=== PATIENT | female | born 1955 | race Caucasian/White ===

== ENCOUNTER 2017-11-22 01:17 | Outpatient (CLI) | payer OTHER, SELFPAY ==
--- NOTE | 2017-11-22 11:08 | DI.MAMMO_ITS ---
SYMPTOMS/DIAGNOSIS: SCREENING, Z12.31 MAMMOGRAM: Mammograms were interpreted according to the usual protocol including computer analysis with CAD system, tomosynthesis and C view imaging. The breasts are of moderate density with fairly symmetrical distribution of fibroglandular tissue. No dominant mass or clumped microcalcification is identified in either breast. There are numerous scattered nonspecific microcalcifications unchanged from previous examinations including October 2016. CONCLUSION: No specific evidence of malignancy at this time. Routine screening examinations are suggested at yearly intervals in this age group according to the ACS/ACR guidelines. Category I. Breast density Category B. MQSA ASSESSMENT OF FINDINGS: Negative. Category 1. Patient will receive a letter notifying them of these results. BI-RADS category B. There are scattered areas of fibroglandular density.
== END 2017-11-22 01:37 ==
PROVIDERS: PCP Family Medicine; Visit Provider Family Medicine
DX: Z12.31 Encounter for screening mammogram for malignant neoplasm of breast (principal)
CPT/HCPCS: 77063; 77067

== ENCOUNTER 2017-12-30 09:57 | Outpatient (CLI) | payer OTHER, SELFPAY ==
[2017-12-30 11:39] LABS: Hemoglobin A1C 8.9 % (4.5-6.2)
== END 2017-12-30 10:17 ==
PROVIDERS: PCP Family Medicine; Visit Provider Family Medicine
DX: E11.40 Type 2 diabetes mellitus with diabetic neuropathy, unspecified (principal)
CPT/HCPCS: 36415; 83036

== ENCOUNTER 2018-01-02 12:25 | Outpatient (REF) | payer OTHER, SELFPAY ==
--- NOTE | 2018-01-02 11:00 | PAPFT_PTH ---
PATIENT: Shavon Hodges LOC: [facility] #:[id number] AGE/SX: 62/F ROOM: RE01/02/[address]: Rubia Saldaña MD, DC : 1955 BED: DIS: 01/02/2018 SPEC #: [id number] RECD: 01/03/18 13:02 STATUS: OSMAR REAmber #: [id number] JOSE: 01/02/18 11:[address]: Rubia Saldaña [facility] Cytology RECD BY: Leona Coffey Tissues: 1 - CX/ENDOCX FOR PAP SMEARS Procedures: PAP THIN PREP/UVM Screening HPV DNA PROBE Comments: [id number]
== END 2018-01-02 12:45 ==
LOC: LBN 12:25
PROVIDERS: PCP Family Medicine; Visit Provider Family Medicine
DX: Z12.4 Encounter for screening for malignant neoplasm of cervix (principal); Z11.51 Encounter for screening for human papillomavirus (HPV)
CPT/HCPCS: 88142; 87624

== ENCOUNTER 2018-03-16 08:59 | Outpatient (CLI) | payer OTHER, SELFPAY ==
[2018-03-16 09:33] LABS: ALT 48 U/L (12-78); AST 34 U/L (15-37); Albumin 3.8 g/dL (3.4-5.0); Alkaline Phosphatase 91 U/L (46-116); Anion Gap 11.6 mmol/L (3-11); BUN 24 mg/dL (7-18); Bilirubin, Total 0.8 mg/dL (0.2-1.0); CO2 27.4 mmol/L (21.0-32.0); CREATININE 1.12 mg/dL (0.55-1.02); Calcium 9.3 mg/dL (8.5-10.1); Chloride 99 mmol/L (98-107); Estimated GFR 49.62 (mL/min/1.73m2); Glucose 275 mg/dL (70-100); Potassium 4.1 mmol/L (3.5-5.1); Sodium 138 mmol/L (136-145); Total Protein 7.6 g/dL (6.4-8.2)
[2018-03-16 09:46] LABS: Hemoglobin A1C 8.2 % (4.5-6.2)
[2018-03-16 09:52] LABS: Cholesterol 191 mg/dL (50-200); HDL Cholesterol 43 mg/dL (40-60); LDL CHOLESTEROL 121 mg/dL (<100); Triglyceride 199 mg/dL (30-150)
== END 2018-03-16 09:19 ==
PROVIDERS: PCP Family Medicine; Visit Provider Family Medicine
DX: E11.9 Type 2 diabetes mellitus without complications (principal); I10 Essential (primary) hypertension
CPT/HCPCS: 36415; 80053; 80061; 83721; 83036

== ENCOUNTER 2018-08-07 07:42 | Outpatient (CLI) | payer OTHER, SELFPAY ==
[2018-08-07 08:45] LABS: Hemoglobin A1C 7.3 % (4.5-6.2)
== END 2018-08-07 08:02 ==
PROVIDERS: PCP Family Medicine; Visit Provider Family Medicine
DX: E11.9 Type 2 diabetes mellitus without complications (principal)
CPT/HCPCS: 36415; 83036

== ENCOUNTER 2018-11-07 07:38 | Outpatient (CLI) | payer OTHER, SELFPAY ==
[2018-11-07 08:06] LABS: Hemoglobin A1C 7.6 % (4.5-6.2)
== END 2018-11-07 07:58 ==
PROVIDERS: PCP Family Medicine; Visit Provider Family Medicine
DX: E11.9 Type 2 diabetes mellitus without complications (principal)
CPT/HCPCS: 36415; 83036

== ENCOUNTER 2019-01-03 07:01 | Outpatient (CLI) | payer OTHER, SELFPAY ==
[2019-01-03 15:59] LABS: Hemoglobin A1C 8.8 % (4.5-6.2)
== END 2019-01-03 07:21 ==
PROVIDERS: PCP Family Medicine; Visit Provider Family Medicine
DX: E11.9 Type 2 diabetes mellitus without complications (principal)
CPT/HCPCS: 36415; 83036

== ENCOUNTER 2019-11-09 01:37 | Outpatient (CLI) | payer OTHER, SELFPAY ==
[2019-11-09 08:44] LABS: ALT 28 U/L (14-59); AST 17 U/L (15-37); Albumin 3.5 g/dL (3.4-5.0); Alkaline Phosphatase 91 U/L (46-116); Anion Gap 10.3 mmol/L (3-11); BUN 12 mg/dL (7-18); Bilirubin, Total 0.5 mg/dL (0.2-1.0); CO2 27.7 mmol/L (21.0-32.0); CREATININE 0.97 mg/dL (0.55-1.02); Calcium 8.9 mg/dL (8.5-10.1); Calculated LDL 121 mg/dL (<100); Chloride 104 mmol/L (98-107); Cholesterol 187 mg/dL (<200); Estimated GFR 58.19 (mL/min/1.73m2); Glucose 67 mg/dL (74-106); HDL Cholesterol 39 mg/dL (40-60); Potassium 3.5 mmol/L (3.5-5.1); Sodium 142 mmol/L (136-145); Total Protein 7.1 g/dL (6.4-8.2); Triglyceride 137 mg/dL (<150)
[2019-11-09 09:02] LABS: Hemoglobin A1C 7.8 % (3.8-5.6)
== END 2019-11-09 01:57 ==
PROVIDERS: PCP Family Medicine; Visit Provider Family Medicine
DX: Z00.00 Encounter for general adult medical examination without abnormal findings (principal); Z13.220 Encounter for screening for lipoid disorders; Z13.228 Encounter for screening for other metabolic disorders; Z13.1 Encounter for screening for diabetes mellitus
CPT/HCPCS: 36415; 80053; 80061; 83036

== ENCOUNTER 2020-01-03 02:23 | Outpatient (CLI) | payer OTHER, SELFPAY ==
[2020-01-03 11:29] LABS: Hemoglobin A1C 8.3 % (<5.7)
== END 2020-01-03 02:43 ==
PROVIDERS: PCP Family Medicine; Visit Provider Family Medicine
DX: E11.9 Type 2 diabetes mellitus without complications (principal); E03.9 Hypothyroidism, unspecified
CPT/HCPCS: 36415; 83036; 84443

== ENCOUNTER 2020-01-09 01:01 | Outpatient (CLI) | payer OTHER, SELFPAY ==
--- NOTE | 2020-01-09 11:10 | DI.MAMMO_ITS ---
EXAM: MAMMO SCREENING CLINICAL HISTORY: screening, Z12.39 TECHNIQUE: Mammograms were interpreted according to the usual protocol including computer analysis w [employer] CAD system, tomosynthesis and C-view imaging. COMPARISON: 2009 through 2017 FINDINGS: The breasts are composed of scattered fibroglandular densities, Breast Density category B. No suspicious masses or suspicious microcalcifications are seen. Scattered, coarse calcifications an d vascular calcifications are again noted. No skin thickening or abnormal axillary lymph nodes are seen. There has been no significant change from prior exams. IMPRESSION: BI-RADS Category 2 - Negatigve Mammogram with benign findings. Yearly screening mammography is karissa mmended. Breast Density - Category B, scattered fibroglandular densities. A negative radiographic report should not delay biopsy if a dominant or clinically suspicious mass is present. Up to ten percent of cancers are not identified on mammography. A negative report may reinforce clinical impression. Adenosis and dense breasts may obscure an underlying neoplasm. False positive reports average 6 to 10%. Patient will receive a letter notifying them of these results.
== END 2020-01-09 01:21 ==
PROVIDERS: PCP Family Medicine; Visit Provider Family Medicine
DX: Z12.31 Encounter for screening mammogram for malignant neoplasm of breast (principal)
CPT/HCPCS: 77063; 77067

== ENCOUNTER 2020-07-25 02:07 | Outpatient (CLI) | payer OTHER, SELFPAY ==
[2020-07-25 10:12] LABS: Hemoglobin A1C 6.7 % (<5.7)
[2020-07-25 10:54] LABS: COMMENT (LAB VIEW ONLY) 304.64 mg/dL; Microalb ug/mg Crea 3.4 ug/mg Cr
== END 2020-07-25 02:08 | disposition home or self-care (01) ==
LOC: LBO 02:08
PROVIDERS: PCP Family Medicine; Visit Provider Family Medicine
DX: Z00.00 Encounter for general adult medical examination without abnormal findings (principal); E11.9 Type 2 diabetes mellitus without complications
CPT/HCPCS: 36415; 82043; 82570; 83036

== ENCOUNTER 2020-09-16 13:04 | Day surgery (SDC) | payer OTHER, SELFPAY ==
--- NOTE | 2020-09-16 13:02 | W.PM.DSUDISC ---
Discharge Plan Disposition Patient Disposition: HOME Condition: Good Discharge Details Reason For Visit: Right trigger thumb Attending Provider: Aftab Zuleta Primary Care Provider: Rubia Saldaña Home Meds and New Rx's Prescriptions: New hydrocodone-acetaminophen 5-325 mg tablet 1 tab PO Q6H PRNQty: 5 RF: 0 acetaminophen [Tylenol Extra Strength] 500 mg tablet 500 mg PO Q6H PRNQty: 30 RF: 0 ibuprofen 600 mg tablet 600 mg PO TID Qty: 30 RF: 0 Continued (DME) pen needle, diabetic [Pen Needle] 31 gauge x 5/16 needle 1 ea Sub-Q TID Qty: 270 RF: 12 (DME) lancets [BD Ultra Fine Lancets] 33 gauge misc 1 ea Miscellaneous DAILY Qty: 90 RF: 12 Trulicity 1.5 mg/0.5 mL pen injector 1.5 mg SC QWEEK Qty: 8 RF: 5 epinephrine [EpiPen 2-Constantin] 0.3 mg/0.3 mL auto-injector 0.3 mg IM ONCE Qty: 1 RF: 4 hydrochlorothiazide 25 mg tablet 25 mg PO DAILY Qty: 90 RF: 4 ibuprofen 600 mg tablet 600 mg PO Q6H PRN Qty: 360 RF: 12 Lantus Solostar U-100 Insulin 100 unit/mL (3 mL) insulin pen 60 unit SC BID Qty: 120 RF: 5 insulin lispro [Humalog KwikPen Insulin] 100 unit/mL insulin pen 25 unit SC BID Qty: 15 RF: 12 losartan 100 mg tablet 100 mg PO DAILY Qty: 90 RF: 4 metformin 1,000 mg tablet 1,000 mg PO DAILY Qty: 90 RF: 4 atorvastatin 40 mg tablet 40 mg PO DAILY RF: 0 clopidogrel 75 mg tablet 75 mg PO DAILY RF: 0 multivitamin 1 EACH tablet 1 tab PO DAILY RF: 0 aspirin [Aspirin Low-Strength] 81 MG tablet,chewable 81 mg PO DAILY RF: 0 (DME) lancets [OneTouch Delica Lancets] 1 EACH misc 1 ea Miscellaneous QID RF: 0 (DME) Blood Glucose Test strip 1 ea Miscellaneous TID Qty: 400 RF: 12 levothyroxine 75 mcg tablet 75 mcg PO DAILY Qty: 90 RF: 5 pantoprazole 40 mg tablet,delayed release (DR/EC) 40 mg PO DAILY Qty: 90 RF: 5 Discharge Instructions Stand Alone Forms: Song Gonzalez Finger Release Referrals: Aftab Zuleta MD [ [facility] STAFF PHYSICIAN] - Activity:: Activity as Tolerated Remove Dressings/Wound Care:: 72 hours Shower/Bathe:: 72 hours Diet:: As Tolerated Discharge Orders Discharge Orders: Discharge Order (Routine); Ordered 09/16/20 Ordered By: Willow Lucas DS: Diagnosis Discharge Diagnosis (1) Trigger thumb, right thumb: Status: Acute
[2020-09-16 13:33] VITALS: BP 96/63; PULSE 75; RESP 20; TEMP 36.5; O2SAT 97
[2020-09-16] MEDS: Sodium Bicarbonate 50 MEQ/50 ML VIAL (15:06)
[2020-09-16 15:10] VITALS: BP 117/46; PULSE 77; RESP 18; TEMP 36.3; O2SAT 99
--- NOTE | 2020-09-16 22:30 | W.PM.OP ---
Date of service: 09/16/20 Time of Service: 14:30 Operative Note Operative Note DATE OF PROCEDURE: 09/16/20 PRE-OP DIAGNOSIS: Right Trigger Thumb POST-OP DIAGNOSIS: same PROCEDURE: Trigger Finger Release - Right Thumb SURGEON: Aftab Zuleta ANESTHESIA TYPE: Local By Surgeon Refer to Anesthesia Record PATHOLOGY: none sent COMPLICATIONS: None Patient was transported to: same day Patient's condition: stable Indications: I have seen Shavon in clinic for symptoms of a trigger finger of the right thumb. The catching, clicking, locking, and pain limited function. The diagnosis of trigger finger was evident. The symptoms had not responded to conservative measures. I discussed trigger finger release with the patient. I reviewed the risks of the procedure to include, but not limited to, bleeding, infection, pain, stiffness, incomplete release, damage to nerves or vessels, continued catching, recurrence. Despite these risks, the patient elected to proceed. Findings: There was a tightened A1 anya which was released. The flexor tendons were inspected and the patient was able to move the finger without any catching, clicking, or locking. Procedure Description: Shavon was greeted in the preoperative holding area where the correct side was identified and marked. The consent was reviewed with the patient and signed. All questions were answered. She was taken back to the operating room. The patient was placed into the supine position on the operating room table with the right arm on an arm board. All bony prominences were well padded. No prophylactic antibiotics were administered since this was a clean, elective hand surgical case. The right arm was then prepped with Chloraprep and draped in a standard fashion with stockinette and extremity drape. A timeout to confirm correct identity, side and site, procedure, allergies, anesthesia, and medical concerns was performed. The surgical site was marked as a longitudinal incision directly over the A1 anya of the involved digit. This was confirmed with palpation during finger flexion. This area, overlying the metacarpal head, was then anesthetized with 1% Lidocaine. The patient tolerated this well and once the anesthetic had setup, the procedure began. A longitudinal incision was made through skin only, approximately 1cm. The deep tissues were dissected bluntly. Once the A1 anya and flexor tendons were identified the soft tissue including neurovascular structures were retracted medially and laterally. There were no crossing structures over the A1 anya. The proximal edge of the anya was identified and the anya was incised with tenotomy scissors. There was a release of the tendons once this was fully released. The tendons were then removed from the wound and inspected. Excess synovium was resected. The tendons were then returned and the patient was asked to move the finger into deep flexion and back to extension. There was no recreation of the pre-operative symptoms. The hand was then once more inspected for any A0 anya or area of possible constriction. The wound was then irrigated and the skin was closed with a 4-0 Nylon. This was dressed with gauze and a Conform dressing. The patient tolerated the procedure well and was returned to the Same Day Surgery area in a stable condition suffering no known complication.
== END 2020-09-16 15:32 | disposition home or self-care (01) ==
LOC: SUR 13:04
PROVIDERS: PCP Family Medicine; Visit Provider Student in an Organized Health Care Education/Training Program
PROC: 0LN70ZZ Release Right Hand Tendon, Open Approach (ICD-10-PCS; CPT 26055; principal; 2020-09-16 14:30)
DX: M65.311 Trigger thumb, right thumb (principal)
CPT/HCPCS: 26055

== ENCOUNTER 2020-10-24 01:41 | Outpatient (CLI) | payer OTHER, SELFPAY ==
[2020-10-24 13:12] LABS: Hemoglobin A1C 6.8 % (<5.7)
[2020-10-24 13:14] LABS: TSH (W/Ref FT4) 0.81 uIU/mL (0.36-3.74)
== END 2020-10-24 01:42 | disposition home or self-care (01) ==
LOC: LOS 01:41
PROVIDERS: PCP Family Medicine; Visit Provider Family Medicine
DX: E11.9 Type 2 diabetes mellitus without complications (principal); E03.9 Hypothyroidism, unspecified
CPT/HCPCS: 36415; 83036; 84443

== ENCOUNTER 2021-01-08 02:36 | Outpatient (CLI) | payer OTHER, SELFPAY ==
[2021-01-08 08:55] LABS: Hemoglobin A1C 6.4 % (<5.7)
[2021-01-08 09:35] LABS: ALT 24 U/L (14-59); AST 15 U/L (15-37); Albumin 3.8 g/dL (3.4-5.0); Alkaline Phosphatase 99 U/L (46-116); Anion Gap 11.4 mmol/L (3-11); BUN 24 mg/dL (7-18); Bilirubin, Total 0.6 mg/dL (0.2-1.0); CO2 28.6 mmol/L (21.0-32.0); CREATININE 1.4 mg/dL (0.55-1.02); Calculated LDL 100 mg/dL (<100); Chloride 105 mmol/L (98-107); Cholesterol 175 mg/dL (<200); Estimated GFR 37.98 (mL/min/1.73m2); Glucose 111 mg/dL (74-106); HDL Cholesterol 42 mg/dL (40-60); Potassium 3.8 mmol/L (3.5-5.1); Sodium 145 mmol/L (136-145); Total Protein 6.8 g/dL (6.4-8.2); Triglyceride 167 mg/dL (<150)
== END 2021-01-08 02:37 | disposition home or self-care (01) ==
LOC: LBO 02:37
PROVIDERS: PCP Family Medicine; Visit Provider Family Medicine
DX: Z00.00 Encounter for general adult medical examination without abnormal findings (principal); E11.9 Type 2 diabetes mellitus without complications
CPT/HCPCS: 36415; 80053; 80061; 83036

== ENCOUNTER 2021-01-12 14:28 | Outpatient (REF) | payer OTHER, SELFPAY ==
--- NOTE | 2021-01-12 13:30 | PAPFT_PTH ---
PATIENT: Shavon Hodges LOC: [facility]#:[id number] AGE/SX: 65/F ROOM: RE01/12/[address]: Rubia Saldaña MD, DC : 1955 BED: DIS: 01/12/2021 SPEC #: [id number] RECD: 01/13/21 12:42 STATUS: OSMAR REAmber #: [id number] JOSE: 01/12/21 13:[address]: Rubia Saldaña [facility] Cytology RECD BY: Leona Coffey Tissues: 1 - CX/ENDOCX FOR PAP SMEARS Procedures: PAP THIN PREP/UVM Screening HPV DNA PROBE Comments: [id number]
== END 2021-01-12 14:29 | disposition home or self-care (01) ==
LOC: LBN 14:28
PROVIDERS: PCP Family Medicine; Visit Provider Family Medicine
DX: Z12.4 Encounter for screening for malignant neoplasm of cervix (principal); Z11.51 Encounter for screening for human papillomavirus (HPV)
CPT/HCPCS: 88142; 87624

== ENCOUNTER 2021-09-25 02:19 | Outpatient (CLI) | payer OTHER, SELFPAY ==
[2021-09-25 10:10] LABS: HCT 36.1 % (36.0-46.0); HGB 12.1 g/dL (11.2-15.7); MCH 31.4 pg (27.0-33.0); MCHC 33.5 % (32.0-36.0); MCV 94 fL (80-95); MPV 11.2 fL (8.0-11.0); Platelet Count 214 10^3/uL (130-400); RBC 3.85 10^6/uL (3.93-5.22); RDW 13.7 % (11.7-14.6); RDW-SD 46.2 fL; WBC 8.79 10^3/uL (4.4-10.8)
[2021-09-25 10:33] LABS: Hemoglobin A1C 6.9 % (<5.7)
[2021-09-25 10:59] LABS: ALT 34 U/L (14-59); AST 24 U/L (15-37); Albumin 3.6 g/dL (3.4-5.0); Alkaline Phosphatase 85 U/L (46-116); Anion Gap 9.4 mmol/L (3-11); BUN 23 mg/dL (7-18); Bilirubin, Total 0.7 mg/dL (0.2-1.0); CO2 30.6 mmol/L (21.0-32.0); CREATININE 1.3 mg/dL (0.55-1.02); Calcium 8.7 mg/dL (8.5-10.1); Chloride 103 mmol/L (98-107); Estimated GFR 41.24 (mL/min/1.73m2); Glucose 95 mg/dL (74-106); Potassium 3.2 mmol/L (3.5-5.1); Sodium 143 mmol/L (136-145); TSH (W/Ref FT4) 2.39 uIU/mL (0.36-3.74); Total Protein 6.9 g/dL (6.4-8.2)
== END 2021-09-25 02:20 | disposition home or self-care (01) ==
LOC: LBO 02:19
PROVIDERS: PCP Family Medicine; Visit Provider Family Medicine
DX: E03.9 Hypothyroidism, unspecified (principal); E11.9 Type 2 diabetes mellitus without complications; I25.10 Atherosclerotic heart disease of native coronary artery without angina pectoris; K76.0 Fatty (change of) liver, not elsewhere classified; N28.9 Disorder of kidney and ureter, unspecified
CPT/HCPCS: 36415; 80053; 85027; 82043; 82570; 83036; 84443

== ENCOUNTER 2021-11-02 02:31 | Outpatient (CLI) | payer OTHER, SELFPAY ==
[2021-11-02 10:46] LABS: Source Nasal/Nares
[2021-11-02 16:06] LABS: COVID-19 PCR Negative (Negative)
== END 2021-11-02 02:32 | disposition home or self-care (01) ==
LOC: LBO 02:31
PROVIDERS: PCP Family Medicine; Visit Provider Surgery
DX: Z20.822 Contact with and (suspected) exposure to COVID-19 (principal); Z01.818 Encounter for other preprocedural examination
CPT/HCPCS: 87635

== ENCOUNTER 2021-11-03 06:09 | Day surgery (SDC) | payer OTHER, SELFPAY ==
--- NOTE | 2021-11-02 21:28 | ENDO_ITS ---
Date of service: 11/03/21 Time of Service: 07:42 Endoscopy Report DATE OF PROCEDURE: 11/03/21 PRE-OP DIAGNOSIS: dysphagia/reflux POST-OP DIAGNOSIS: other (gastroparesis ) SURGEON: Natasha Gonzalez ANESTHESIA TYPE: General:No Airway ESTIMATED BLOOD LOSS: 0 PATHOLOGY: none sent COMPLICATIONS: None DISPOSITION: PACU PROCEDURE DESCRIPTION: After informed consent was obtained the patient was take to the procedure room and placed in a supine position. Monitors were applied and a time out was done. The patients name, date of , procedure type, allergies to medications and metal in their body was reviewed. A bite block was placed and the patient was sedated. Once sedated and comfortable the gastroscope was advanced through the oropharynx which was grossly normal into the esophagus. The proximal and mid- esophagus were normal In the distal esophagus there was there is no esophageal erosions, varices, diverticula, or stricture apparent. Upon inserting the gastroscope into the stomach, there is a large quantity of fluid still present in the stomach. We did attempt to liquefy and suction this material but at the same time the patient did aspirate. What I could see in the stomach was normal with normal mucosa. No biopsies were taken. The procedure was abandoned for patient safety. There are no strictures.The scope was removed and the patient was woken up and taken back to PACU in stable condition. Follow up: gastric emptying study f/u in clinic
--- NOTE | 2021-11-02 21:34 | W.PM.DSUDISC ---
Discharge Plan Disposition Patient Disposition: HOME Condition: Good Discharge Details Reason For Visit: EGD/Stomach scope Attending Provider: Natasha Gonzalez Primary Care Provider: Rubia Saldaña Home Meds and New Rx's Prescriptions: New lansoprazole [Prevacid] 30 mg capsule,delayed release(DR/EC) 30 mg PO DAILY Qty: 30 12RF Continued (DME) pen needle, diabetic [Pen Needle] 31 gauge x 5/16 needle 1 ea Sub-Q TID Qty: 270 12RF Rx Instructions: BD Pen needles; DX:E10.39/ E10/Z79.4 (DME) lancets [BD Ultra Fine Lancets] 33 gauge misc 1 ea Miscellaneous DAILY Qty: 90 12RF Rx Instructions: 250.01/250.92/ 29G atorvastatin 40 mg tablet 40 mg PO DAILY Qty: 90 4RF metoprolol succinate 25 mg tablet extended release 24 hr 25 mg PO DAILY Qty: 90 5RF (DME) Blood Glucose Test Strip 1 ea Miscellaneous TID Qty: 400 12RF Rx Instructions: FORContour regular meter. PT USES INSULIN. TESTS TID AND PRN. DIAGNOSIS CODE E11.65/E11.40 Trulicity 1.5 mg/0.5 mL pen injector 1.5 mg SC QWEEK Qty: 8 5RF epinephrine [EpiPen 2-Constantin] 0.3 mg/0.3 mL auto-injector 0.3 mg IM ONCE Qty: 1 4RF hydrochlorothiazide 25 mg tablet 25 mg PO DAILY Qty: 90 4RF insulin lispro [Humalog KwikPen Insulin] 100 unit/mL insulin pen 25 unit SC BID Qty: 15 12RF losartan 100 mg tablet 100 mg PO DAILY Qty: 90 4RF Probiotic 3 billion cell capsule 3,000 mmu cells PO DAILY Rx Instructions: administer with a meal multivitamin 1 EACH tablet 1 tab PO DAILY aspirin [Aspirin Low-Strength] 81 MG tablet,chewable 81 mg PO DAILY (DME) lancets [OneTouch Delica Lancets] 1 EACH misc 1 ea Miscellaneous QID Rx Instructions: DX:250. (DME) blood-glucose meter Kit See Rx Instructions .ROUTE .MEDSUPPLY Qty: 1 0RF Rx Instructions: on insulin, e11.9, contour meter (DME) pen needle, diabetic [BD Ultra-Fine Orig Pen Needle] 29 gauge x 1/2 needle See Rx Instructions .ROUTE .MEDSUPPLY Qty: 500 4RF Rx Instructions: 5 needles per day and prn.E11.9. Z79.4 levothyroxine 75 mcg tablet 75 mcg PO DAILY Qty: 90 5RF insulin glargine [Lantus Solostar U-100 Insulin] 100 unit/mL (3 mL) insulin pen 50 unit SC BID Qty: 120 6RF (DME) pen needle, diabetic [1st Tier Unifine Pentips] 31 gauge x 5/16 needle See Rx Instructions .ROUTE .MEDSUPPLY Qty: 1200 5RF Rx Instructions: E11.9; 6 needles per day acetaminophen [Tylenol Extra Strength] 500 mg tablet 500 mg PO Q6H PRNQty: 30 0RF clopidogrel 75 mg tablet 1 tab PO DAILY Discontinued pantoprazole 40 mg tablet,delayed release (DR/EC) 40 mg PO DAILY Qty: 90 3RF Discharge Instructions Additional Instructions: Post?EGD?Instruction ? ?You had anesthesia for your EGD/stomach scope today.? For your safety, please do the following for the next twenty-four (24) hours: Do Not operate a motor vehicle (car, truck, motorcycle, etc.) Do Not drink alcoholic beverages or use any recreational drugs for the first 24 hours or while taking pain medications. The medications in your body may have a reaction that can be dangerous. Do Not make any important decisions or sign any important papers ? You have just had a gastroscopy (EGD) or upper GI tract examination. It is important for your smooth recovery that you carefully follow the recommendations below. Do not hesitate to call if any questions should arise about your anesthesia, condition, or care. -Symptoms you may experience during the next 24 hours: ?1. Mild abdominal pain or excessive gas or a bloated feeling which improves with rest, liquids, eating? slightly, and walking as tolerated. 2. Drowsiness and/or forgetfulness because of the medications you were given. ?3. Throat numbness for about 1 hour. 4. A sore throat which you can treat with throat lozenges or by gargling with salt water 4-5 times a day. 5. Redness at the site of your IV which you can treat with warm compresses. ? SPECIAL INSTRUCTIONS: 1. You may resume your previous diet in one hour. We recommend a light meal to start, then progress as tolerated. 2. Restart regular medications in one hour. 3. No aspirin or non-steroidal containing medication for three days. 4. No lifting over 20 pounds or strenuous activity for the first 24 hours after your procedure. After 24 hours there are no restrictions on your activity, but you may feel fatigued for a few days. -Medications: Changed to prevacid -Continue to follow lifestyle modifications: No alcohol, tobacco products, Aspirin or NSAID's (ibuprofen, Motrin, Naprosyn, aleve, etc).? Try to limit/avoid:? soda pop/any carbonated beverages, caffeine (including tea & chocolate), and acidic foods, (tomatoes, citrus, onions, peppermints) spicy or fried/fatty foods. Do not lie down for 30 minutes after eating, and do not eat 2 hours prior to bedtime. Avoid wearing tight fitting clothing/ belts. -OK to resume plavix today -Do not take Aspirin on an empty stomach- take w/ food. Follow up: Dr. Gonzalez in clinic: 2-3 weeks time, after the gastric empyting study The hospital will call to schedule this. Call the office at [phone] (Office) or [phone] (Hospital), or go to the ER right away if you notice any of the followin. Vomiting blood and /or ?coffee ground? material. ?2. Worsening of abdominal pain or cramping. ?3. Trouble with breathing, cough, and/or fever (temperature above 101.5 F). 4. Increasing pain with swallowing. ?5. Chest pain. 6. Any new symptoms. 7. Worsening of the redness at the IV site Activity:: see above Diet:: see above Discharge Orders Discharge Orders: Discharge Order (Routine); Ordered 11/02/21 Ordered By: Natasha Gonzalez
[2021-11-03] VITALS (8 sets, daily range): BP systolic 118–158; BP diastolic 59–81; PULSE 70–77; RESP 10–24; TEMP 36.1–36.5; O2SAT 95–100; BMI 41.9
--- NOTE | 2021-11-03 06:19 | ANES.PREOP_ITS ---
General Info Date of Service Date Performed: 11/03/21 Height: 5 ft 5.5 in Weight: 116.12 kg Body Mass Index (BMI): 41.9 Surgical Procedure: Operation Date: 11/03/21 07:35 Proposed Procedure Side Surgeon p Gastroscopy with Possible Dilation Natasha Gonzalez, Meds Allergies and Home Medications Allergies Allergy/AdvReac Type Severity Reaction Status Date / Time No Known Allergies Allergy Unverified 11/03/21 06:25 Home Medication Medication Instructions Recorded aspirin 81 mg chewable tablet 81 mg PO DAILY 06/16/12 (Aspirin Low-Strength) lancets 33 gauge (OneTouch Delica 06/16/12 Lancets) multivitamin 1 tab PO DAILY 06/16/12 lancets 33 gauge (BD Ultra Fine ##90 01/02/18 Lancets) pen needle, diabetic 31 gauge x ##270 01/02/1808/03 (Pen Needle) acetaminophen 500 mg tablet 500 mg PO Q6H PRN #30 tabs 09/16/20 (Tylenol Extra Strength) blood-glucose meter #1 ea 11/07/20 pen needle, diabetic 29 gauge x #500 ea 12/14/20 1/2 (BD Ultra-Fine Original Pen Needle) dulaglutide 1.5 mg/0.5 mL 1.5 mg (0.5 mL) subcut QWEEK #8 mL 01/12/21 subcutaneous pen injector (Trulicity) epinephrine 0.3 mg/0.3 mL 0.3 mg (0.3 mL) IM ONCE #1 ea 01/12/21 injection, auto-injector (EpiPen 2-Constantin) hydrochlorothiazide 25 mg tablet 25 mg PO DAILY #90 tabs 01/12/21 insulin lispro 100 unit/mL 25 unit (0.25 mL) subcut BID #15 mL 01/12/21 subcutaneous pen (Humalog KwikPen (U-100) Insulin) losartan 100 mg tablet 100 mg PO DAILY #90 tab-caps 01/12/21 levothyroxine 75 mcg tablet 75 mcg PO DAILY #90 tabs 01/27/21 insulin glargine 100 unit/mL (3 50 unit (0.5 mL) subcut BID #120 mL 02/20/21 mL) subcutaneous pen (Lantus Solostar U-100 Insulin) pen needle, diabetic 31 gauge x #1,200 ea 02/23/2108/03 (1st Tier Unifine Pentips) pantoprazole 40 mg tablet,delayed 40 mg PO DAILY #90 tabs 08/13/21 release atorvastatin 40 mg tablet 40 mg PO DAILY #90 tabs 09/28/21 blood sugar diagnostic (Blood #400 strips 09/28/21 Glucose Test strips) metoprolol succinate 25 mg 25 mg PO DAILY #90 tabs 09/28/21 tablet,extended release 24 hr lactobacillus combination no.4 3 3,000 mmu cells PO DAILY 10/22/21 billion cell capsule (Probiotic) clopidogrel 75 mg tablet 1 tab PO DAILY 11/02/21 Current Visit Medications: Current Medications Generic Name Dose Route Start Last Admin Trade Name Freq PRN Reason Stop Dose Admin Hyoscyamine Sulfate 0.125 mg 11/02/21 21:27 Hyoscyamine 0.125 Mg Sl/Oral/Chew SL DIRECTED PRN Ringer's Solution 1,000 mls @ 80 mls/hr 11/03/21 06:00 IV 12/02/21 23:59 [facility] IV Miscellaneous Supplies 1 each 11/03/21 06:00 Iv Access IV 12/02/21 23:59 DIRECTED VALDEMAR Ondansetron HCl 4 mg 11/02/21 21:27 Ondansetron 4 Mg/2 Ml Vial IVP Q4H PRN PRN Nausea / Vomiting Sodium Chloride 0 ml 11/03/21 06:00 Normal Saline Flush 10 Ml Syr IV 12/02/21 23:59 PRN PRN Sodium Chloride 0 ml 11/03/21 06:00 Normal Saline 10 Ml Vial IJ 12/02/21 23:59 DIRECTED PRN Sterile Water 0 ml 11/03/21 06:00 Water,Injection,Sterile 10 Ml Vial IJ 12/02/21 23:59 DIRECTED PRN PFSH Active Problems Active Problems: Problem Status Onset Code Annual physical exam 11/11/16 Z00.00 Carpal tunnel syndrome on both sides 05/21/14 G56.03 Degeneration of cervical intervertebral disc 02/18/00 M50.30 Diabetes mellitus with neuropathy 04/08/14 E11.40 Duodenitis K29.80 Essential hypertension 12/29/12 I10 Gastritis 04/14/15 K29.70 Hyperlipidemia 09/25/12 E78.5 Increased body mass index R63.8 Myopia 12/07/12 H52.10 Non-alcoholic fatty liver disease 02/27/08 K76.0 Osteopenia 11/14/07 M85.80 Reflux esophagitis K21.0 Diabetes mellitus Epicondylitis Shoulder pain, left Hypothyroid E03.9 Shingles B02.9 CAD (coronary artery disease) I25.10 Trigger thumb, right thumb M65.311 Right leg pain M79.604 Renal insufficiency N28.9 Medical History Medical History Abnormal mammography 11/14/07 Acute vaginitis 01/06/17 Calculus of gallbladder without cholecystitis without obstruction (01/22/15) DM w/o complication type I, uncontrolled (09/25/12) Uncontrolled; hemoglobin A1c > 10 Dysfunctional uterine bleeding 07/18/05 neg endo bx; thickened endometrium on pelvic u/s. Epicondylitis 11/14/07 H. pylori infection 07/14/15 Hemorrhoids (11/14/07) Myocardial infarction per pt. 18+months ago-pt. states she didn't even know she had one. Routine gynecological examination 09/30/14 Smoker 11/14/07 Supraventricular tachycardia 12/18/94 cath ablation Visual disturbance (11/18/08) presbyopia; astigmatisam thought to be secondary to diabetes and hypertension Surgical History Surgical History History of bilateral tubal ligation Hx laparoscopic cholecystectomy Hx of colonoscopy Ligation of fallopian tube Tobacco Smoking/Tobacco Use Status: Former Tobacco Use Passive smoking exposure: Yes Second hand exposure: Yes Alcohol Alcohol Intake: current Alcohol intake frequency: holidays/special occasions only Alcohol type: hard liquor Substance Use Substance use: Never Substance use type: does not use Vital Signs and Lab Results Lab Results Blood Type / Crossmatch: No Data to Display Complete Blood Count: No Data to Display Complete Metabolic Panel: No Data to Display Liver Function Panel: No Data to Display Coagulation Panel: No Data to Display Cardiac Panel: No Data to Display Arterial Blood Gas: No Data to Display Venous Blood Gas: No Data to Display Pancreas Panel: No Data to Display Thyroid Panel: No Data to Display Infectious Disease: Coronavirus (COVID-19)(PCR) Negative (Negative) 11/02/21 09:25 Coronavirus 2019 Source Nasal/Nares 11/02/21 09:25 Blood Cultures: No Data to Display Toxicology Panel: No Data to Display Anesthesia Assessment and Plan Anesthesia History Personal History: No History of Anesthesia Complications Family History: No Family History of Anesthesia Complications Exercise Tolerance Exercise Tolerance: Metabolic Equivalents>4 Cardiac & Pulmonary Exam Cardiac Exam: Normal S1/S2 Heart Sounds Pulmonary Exam: Clear Bilateral Breath Sounds Implantable Cardiac Device Does patient have a Pacemaker or an ICD?: No Airway Exam Known Difficult Airway: No Mallampati Class: 3 Mouth Opening: Narrow (< 3cm) Thyromental Distance: Greater than 3 cm Neck Range of Motion: Full ROM Neck Circumference: Normal Teeth Condition: Normal Dentition ASA Classification ASA Score: ASA 3 Emergency Case?: No NPO Status NPO Status: NPO Clears >2 hours, Solids >8 hours Anesthesia Plan Resuscitation Status: Full Code Anesthesia Technique: General Anesthesia Airway Planned: Natural Airway Monitors Used: Standard Monitors Preoperative Comments:: 66 yo female for EGD with possible dilation. Sig PMHx: DMI last a1c 6.9, BMI 40+, DJD c-spine, BECK, CAD with stent (2020), hypothyroid, HTN, former smoker, occ EtOH, GERD.
[2021-11-03] MEDS: Lactated Ringers 1,000 ML 80 ML IV (06:51)
[2021-11-03] MEDS: Albuterol/Ipratropium 3 ML UPD VIAL UPD (08:01)
--- NOTE | 2021-11-03 09:56 | W.ANESPOSTOP ---
Postoperative Evaluation Date, Time and Location Date Performed: 11/03/21 Time Performed: 09:56 Patient Location: Day Surgery Unit Vital Signs Most Recent Imported Vital Signs: Most Recent Vital Signs Temp Pulse Resp BP Pulse Ox 36.1 C L 74 16 142/64 H 97 11/03/21 09:05 11/03/21 09:05 11/03/21 09:05 11/03/21 09:05 11/03/21 09:05 Pain Score Most Recent Pain Score: Most Recent Pain Score Pain Level 0 11/03/21 09:05 Assessment Mental Status: Awake (Alert & Oriented to Patient Baseline) Airway and Respiratory Function: Patent airway with normal (patient baseline) respiratory exam Cardiovascular Function: Hemodynamically Stable Hydration Status: Adequately Hydrated Nausea & Vomiting: No Nausea or Vomiting Pain: Pt. Denies Any Pain Peripheral Nerve Block: Patient did not receive a nerve block Postoperative Comments:: Discussed with pt in PACU and DSU about aspiration and why the case was cancelled, she unfortunatly was d/c'd from DSU prior to giving her the aspiration discharge info.
== END 2021-11-03 09:29 | disposition home or self-care (01) ==
PROVIDERS: PCP Family Medicine; Visit Provider Surgery
PROC: 0D758ZZ Dilation of Esophagus, Via Natural or Artificial Opening Endoscopic (ICD-10-PCS; CPT 43235; principal; 2021-11-03 07:30)
DX: K21.9 Gastro-esophageal reflux disease without esophagitis (principal); E11.43 Type 2 diabetes mellitus with diabetic autonomic (poly)neuropathy; K31.84 Gastroparesis; Z79.4 Long term (current) use of insulin; J95.88 Other intraoperative complications of respiratory system, not elsewhere classified; T17.908A Unspecified foreign body in respiratory tract, part unspecified causing other injury, initial encounter
CPT/HCPCS: 43235; J7620

== ENCOUNTER → 2021-11-13 00:20 | Outpatient (CLI) | payer OTHER, SELFPAY ==
--- NOTE | 2021-11-13 06:45 | DI.RAD_ITS ---
Exam(s) XR KNEE LT 3V AP,LAT,DONELL EXAM: XR KNEE LT 3V AP,LAT,DONELL CLINICAL HISTORY: l knee pain,m25.562. TECHNIQUE: 2D digital imaging was performed. COMPARISON: No exams were available for comparison FINDINGS: 3 views No evidence of fracture nor obvious joint effusion. No joint space narrowing. No osteophytes. Ther e is, however, a vertically orientated 6 x 2 millimeter calcific density parallel to the outer aspect of the medial femoral condyle, related to the MCL and possibly from prior Donna-Stieda injury. No other calcifications evident. Vascular calcifications noted in the distal femoral and popliteal arteries. IMPRESSION: DATA REPOSITORY: RADIATION DOSE DELIVERED:
== END ==
PROVIDERS: PCP Family Medicine; Visit Provider Family Medicine
DX: M25.562 Pain in left knee (principal)
CPT/HCPCS: 73562

== ENCOUNTER 2022-01-07 03:44 | Outpatient (CLI) | payer OTHER, SELFPAY ==
[2022-01-07 09:29] LABS: ALT 30 U/L (14-59); AST 21 U/L (15-37); Albumin 3.8 g/dL (3.4-5.0); Alkaline Phosphatase 92 U/L (46-116); Anion Gap 12.1 mmol/L (3-11); BUN 16 mg/dL (7-18); Bilirubin, Total 0.6 mg/dL (0.2-1.0); CO2 27.9 mmol/L (21.0-32.0); CREATININE 1.1 mg/dL (0.55-1.02); Calcium 9.2 mg/dL (8.5-10.1); Chloride 105 mmol/L (98-107); Estimated GFR 56.11 (mL/min/1.73m2); Glucose 109 mg/dL (74-106); Potassium 3.6 mmol/L (3.5-5.1); Sodium 145 mmol/L (136-145); Total Protein 7.6 g/dL (6.4-8.2)
[2022-01-07 09:51] LABS: Hemoglobin A1C 6.6 % (<5.7)
== END 2022-01-07 03:45 | disposition home or self-care (01) ==
LOC: LBO 03:44
PROVIDERS: PCP Family Medicine; Visit Provider Family Medicine
DX: N28.9 Disorder of kidney and ureter, unspecified (principal); E11.9 Type 2 diabetes mellitus without complications
CPT/HCPCS: 36415; 80053; 83036

== ENCOUNTER 2022-08-02 00:51 | Outpatient (CLI) | payer MEDICARE, SELFPAY ==
--- NOTE | 2022-08-02 07:15 | DI.MAMMO_ITS ---
Exam(s) MAMMO SCREENING EXAM: MAMMO SCREENING CLINICAL HISTORY: screening,z12.39 TECHNIQUE: Mammograms were interpreted according to the usual protocol including computer analysis w [employer] CAD system, tomosynthesis and C-view imaging. COMPARISON: 2013 through 2019 FINDINGS: The breasts are composed of scattered fibroglandular densities, Breast Density category B. No suspicious masses or suspicious microcalcifications are seen. Scattered bilateral coarse, benign- appearing calcifications. Scattered bilateral stable nodules. No skin thickening or abnormal axillary lymph nodes are seen. There has been no significant change from prior exams. IMPRESSION: BI-RADS Cat 2 - Benign Findings Yearly screening mammography is recommended. Breast Density - Category B, scattered fibroglandular densities. A negative radiographic report should not delay biopsy if a dominant or clinically suspicious mass is present. Up to ten percent of cancers are not identified on mammography. A negative report may reinforce clinical impression. Adenosis and dense breasts may obscure an underlying neoplasm. False positive reports average 6 to 10%. Patient will receive a letter notifying them of these results.
== END 2022-08-02 01:11 ==
PROVIDERS: PCP Family Medicine; Visit Provider Family Medicine
DX: Z12.31 Encounter for screening mammogram for malignant neoplasm of breast (principal)
CPT/HCPCS: 77063; 77067

== ENCOUNTER 2022-09-06 02:21 | Outpatient (CLI) | payer MEDICARE, SELFPAY ==
--- NOTE | 2022-09-06 06:45 | DI.RAD_ITS ---
Exam(s) XR THUMB RT EXAM: XR THUMB RT CLINICAL HISTORY: thumb pain chronic, M79.646, G89.29 chronic pain. TECHNIQUE: 2D digital imaging was performed. Three views. COMPARISON: No exams were available for comparison FINDINGS: BONES: No acute fracture is present. No bony destructive lesion is seen. JOINTS: No dislocation present. Mild degenerative changes at the interphalangeal joint. Mild-to-mod erate degenerative changes at the 1st carpal metacarpal joint and inter phalangeal joints of fingers. SOFT TISSUE: Normal. IMPRESSION: No evidence of acute fracture, dislocation, or subluxation. [id number] degenerative changes g reatest at the 1st carpal metacarpal joint. DATA REPOSITORY: RADIATION DOSE DELIVERED:
== END 2022-09-06 02:41 ==
PROVIDERS: PCP Family Medicine; Visit Provider Family Medicine
DX: M18.9 Osteoarthritis of first carpometacarpal joint, unspecified
CPT/HCPCS: 73140

== ENCOUNTER 2022-10-07 02:37 | Outpatient (CLI) | payer MEDICARE, SELFPAY ==
[2022-10-07 15:56] LABS: HCT 35.5 % (36.0-46.0); HGB 11.8 g/dL (11.2-15.7); MCH 30.2 pg (27.0-33.0); MCHC 33.2 % (32.0-36.0); MCV 91 fL (80-95); MPV 11.2 fL (8.0-11.0); Platelet Count 193 10^3/uL (130-400); RBC 3.91 10^6/uL (3.93-5.22); RDW 13.4 % (11.7-14.6); RDW-SD 44.2 fL; WBC 8.37 10^3/uL (4.4-10.8)
[2022-10-07 16:05] LABS: Hemoglobin A1C 7.5 % (<5.7)
[2022-10-07 16:30] LABS: ALT 30 U/L (14-59); AST 21 U/L (15-37); Albumin 3.5 g/dL (3.4-5.0); Alkaline Phosphatase 93 U/L (46-116); Anion Gap 9.3 mmol/L (3-11); BUN 20 mg/dL (7-18); Bilirubin, Total 0.5 mg/dL (0.2-1.0); CO2 28.7 mmol/L (21.0-32.0); CREATININE 1.1 mg/dL (0.55-1.02); Calcium 9.2 mg/dL (8.5-10.1); Calculated LDL 80 mg/dL (<100); Chloride 107 mmol/L (98-107); Cholesterol 150 mg/dL (<200); Estimated GFR 55.76 (mL/min/1.73m2); Glucose 146 mg/dL (74-106); HDL Cholesterol 45 mg/dL (40-60); Sodium 145 mmol/L (136-145); TSH (W/Ref FT4) 0.04 uIU/mL (0.36-3.74); Total Protein 6.9 g/dL (6.4-8.2); Triglyceride 128 mg/dL (<150)
[2022-10-07 16:48] LABS: FREE T4 1.21 ng/dL (0.76-1.46)
== END 2022-10-07 02:38 | disposition home or self-care (01) ==
LOC: LBO 02:38
PROVIDERS: PCP Family Medicine; Visit Provider Family Medicine
DX: E03.9 Hypothyroidism, unspecified (principal); E11.40 Type 2 diabetes mellitus with diabetic neuropathy, unspecified; E78.5 Hyperlipidemia, unspecified; I10 Essential (primary) hypertension; K76.0 Fatty (change of) liver, not elsewhere classified; E11.9 Type 2 diabetes mellitus without complications
CPT/HCPCS: 36415; 80053; 80061; 85027; 83036; 84439; 84443

== ENCOUNTER → 2022-10-18 08:39 | Outpatient (BNVA) | payer MEDICARE, SELFPAY | PROVIDERS: PCP Family Medicine; Referring Provider Family Medicine; Visit Provider Student in an Organized Health Care Education/Training Program | DX: M18.11 Unilateral primary osteoarthritis of first carpometacarpal joint, right hand (principal); M18.12 Unilateral primary osteoarthritis of first carpometacarpal joint, left hand; Z98.890 Other specified postprocedural states | CPT/HCPCS: 99213 ==

== ENCOUNTER 2022-12-27 14:05 | Outpatient (REF) | payer MEDICARE, SELFPAY ==
[2022-12-27 21:16] LABS: COMMENT (LAB VIEW ONLY) 204.71 mg/dL; Microalb ug/mg Crea 4.2 ug/mg Cr
== END 2022-12-27 14:06 | disposition home or self-care (01) ==
LOC: NCHCN 14:05
PROVIDERS: PCP Family Medicine; Visit Provider Family Medicine
DX: E11.9 Type 2 diabetes mellitus without complications (principal)
CPT/HCPCS: 82043; 82570

== ENCOUNTER → 2023-01-03 08:15 | Outpatient (BNVA) | payer MEDICARE, SELFPAY | PROVIDERS: PCP Family Medicine; Visit Provider Student in an Organized Health Care Education/Training Program | DX: M18.11 Unilateral primary osteoarthritis of first carpometacarpal joint, right hand (principal) | CPT/HCPCS: 99213 ==

== ENCOUNTER → 2023-08-11 02:21 | Outpatient (CLI) | payer MEDICARE, SELFPAY ==
--- NOTE | 2023-08-11 08:15 | DI.MAMMO_ITS ---
Exam(s) MAMMO SCREENING EXAM: MAMMO SCREENING CLINICAL HISTORY: screening,Z12.39. TECHNIQUE: Bilateral full field digital CC and MLO mammographic images were obtained with 3D tomosyn thesis and utilizing computer aided detection (CAD). COMPARISON: Prior mammograms were reviewed. FINDINGS: Stable appearing bilateral nodules microcalcifications are again noted. There are no obvious new spiculated masses nor new malignant appearing microcalcification groups. There is no significant architectural distortion nor skin thickening-retraction. IMPRESSION: Stable benign-appearing findings. No radiographic evidence of malignancy. BI-RADS Category 2 - Benign Findings Breast Density - Category B - Scattered areas of fibroglandular density Breast density Category C or D implies that the patient has dense breast tissue. Dense breast tissue can make it harder to find cancer on a mammogram. Dense breast tissue is also associated with an incr eased risk of breast cancer. This information about the result of the mammogram report was provided to the patient to raise their awareness. Use this report when you speak with the patient about their risks for breast cancer, which includes their family history. At that time, you may recommend additional screening tests (Ultrasoun d or MRI) as these tests may add significant information. A negative radiographic report should not delay biopsy if a dominant or clinically suspicious mass is present. Up to ten percent of cancers are not identified on mammography. A negative report may reinforce clinical impression. Adenosis and dense breasts may obscure an underlying neoplasm. False positive reports average 6 to 10%. Patient will receive a letter notifying them of these results.
== END ==
PROVIDERS: PCP Family Medicine; Visit Provider Family Medicine
DX: Z12.31 Encounter for screening mammogram for malignant neoplasm of breast (principal)
CPT/HCPCS: 36415; 77063; 77067; 80053; 80061; 85027; 82043; 82570; 83036; 83970; 84100; 84443

== ENCOUNTER 2023-08-11 05:13 | Outpatient (CLI) | payer MEDICARE, SELFPAY ==
[2023-08-11 08:45] LABS: HCT 37.1 % (36.0-46.0); HGB 12.1 g/dL (11.2-15.7); MCHC 32.6 % (32.0-36.0); MCV 92 fL (80-95); MPV 11.8 fL (8.0-11.0); Platelet Count 210 10^3/uL (130-400); RBC 4.03 10^6/uL (3.93-5.22); RDW 13.2 % (11.7-14.6); RDW-SD 44.8 fL; WBC 7.86 10^3/uL (4.4-10.8)
[2023-08-11 09:00] LABS: Hemoglobin A1C 7.4 % (<5.7)
[2023-08-11 09:12] LABS: ALT 26 U/L (14-59); AST 15 U/L (15-37); Albumin 3.7 g/dL (3.4-5.0); Alkaline Phosphatase 100 U/L (46-116); Anion Gap 4.5 mmol/L (3-11); BUN 20 mg/dL (7-18); Bilirubin, Total 0.7 mg/dL (0.2-1.0); CO2 27.5 mmol/L (21.0-32.0); CREATININE 1.3 mg/dL (0.55-1.02); Calculated LDL 90 mg/dL (<100); Chloride 108 mmol/L (98-107); Cholesterol 167 mg/dL (<200); Estimated GFR 45.35 (mL/min/1.73m2); Glucose 171 mg/dL (74-106); HDL Cholesterol 50 mg/dL (40-60); Sodium 140 mmol/L (136-145); TSH (W/Ref FT4) 3.03 uIU/mL (0.36-3.74); Total Protein 7.2 g/dL (6.4-8.2); Triglyceride 136 mg/dL (<150)
[2023-08-11 09:24] LABS: COMMENT (LAB VIEW ONLY) 314.69 mg/dL; Microalb ug/mg Crea 5.9 ug/mg Cr
[2023-08-11 09:26] LABS: PHOSPHORUS 3.5 mg/dL (2.6-4.7)
[2023-08-11 19:33] LABS: Parathyroid Hormone,Intact 135 pg/mL (19-88)
== END 2023-08-11 05:14 | disposition home or self-care (01) ==
LOC: LBO 05:13
PROVIDERS: PCP Family Medicine; Visit Provider Family Medicine
DX: I10 Essential (primary) hypertension (principal); I25.10 Atherosclerotic heart disease of native coronary artery without angina pectoris; E11.40 Type 2 diabetes mellitus with diabetic neuropathy, unspecified; R79.89 Other specified abnormal findings of blood chemistry
CPT/HCPCS: 36415; 80053; 80061; 85027; 82043; 82570; 83036; 83970; 84100; 84443

== ENCOUNTER 2023-08-11 08:38 | Outpatient (REF) | payer MEDICARE, SELFPAY ==
[2023-08-12 11:24] LABS: Calcium Urine <1.0 mg/dL (See Note); Calcium Urine 24 hr <5 mg/24hr (100-300); Timed Urine Volume 500 mL; Urine Collection Period 23.5 Hours
== END 2023-08-11 08:39 | disposition home or self-care (01) ==
LOC: LBN 08:38
PROVIDERS: PCP Family Medicine; Visit Provider Family Medicine
DX: I25.10 Atherosclerotic heart disease of native coronary artery without angina pectoris (principal); E11.40 Type 2 diabetes mellitus with diabetic neuropathy, unspecified; E03.9 Hypothyroidism, unspecified; R79.89 Other specified abnormal findings of blood chemistry
CPT/HCPCS: 82340

== ENCOUNTER → 2023-09-06 01:22 | Outpatient (CLI) | payer MEDICARE, SELFPAY ==
--- NOTE | 2023-09-06 07:15 | DI.US_ITS ---
Exam(s) US LOWER EXTREMITY VENOUS LT EXAM: US LOWER EXTREMITY VENOUS LT CLINICAL HISTORY: f/u DVT lower leg,swelling lower extremity,m79.89 TECHNIQUE: Grayscale, color, and doppler imaging of the deep venous system of the left lower extremi ty was performed. COMPARISON: US US LOWER EXTREMITY VENOUS RT from 10/06/2020 FINDINGS: There is no evidence of intraluminal thrombus and there is normal compression and augmentation demons trated within the common femoral vein, femoral vein, and popliteal vein. In the ipsilateral calf the interrogated veins also exhibit normal compression/ augmentation properti es. The ipsilateral saphenofemoral junction is patent. IMPRESSION: 1. No evidence of DVT in the left lower extremity. DATA REPOSITORY:
== END ==
PROVIDERS: PCP Family Medicine; Visit Provider Family Medicine
DX: M79.89 Other specified soft tissue disorders (principal)
CPT/HCPCS: 93971

== ENCOUNTER 2023-11-08 02:01 | Outpatient (CLI) | payer MEDICARE, SELFPAY ==
[2023-11-08 08:57] LABS: Hemoglobin A1C 7.7 % (<5.7)
[2023-11-08 10:30] LABS: ALT 27 U/L (14-59); AST 17 U/L (15-37); Albumin 3.5 g/dL (3.4-5.0); Alkaline Phosphatase 99 U/L (46-116); Anion Gap 9.4 mmol/L (3-11); BUN 19 mg/dL (7-18); Bilirubin, Total 0.64 mg/dL (0.2-1.0); CO2 27.6 mmol/L (21.0-32.0); CREATININE 1.6 mg/dL (0.55-1.02); Chloride 107 mmol/L (98-107); Estimated GFR 35.35 (mL/min/1.73m2); Glucose 150 mg/dL (74-106); Sodium 144 mmol/L (136-145); Total Protein 6.9 g/dL (6.4-8.2); Vitamin D 25 Total 26.2 ng/mL (30-100)
[2023-11-08 19:12] LABS: Parathyroid Hormone,Intact 122 pg/mL (19-88)
== END 2023-11-08 02:02 | disposition home or self-care (01) ==
LOC: LBO 02:01
PROVIDERS: PCP Family Medicine; Visit Provider Family Medicine
DX: R79.89 Other specified abnormal findings of blood chemistry (principal); E11.9 Type 2 diabetes mellitus without complications; E55.9 Vitamin D deficiency, unspecified; I10 Essential (primary) hypertension
CPT/HCPCS: 36415; 80053; 82306; 83036; 83970

== ENCOUNTER 2023-12-08 01:17 | Outpatient (CLI) | payer MEDICARE, SELFPAY ==
--- NOTE | 2023-12-08 06:45 | DI.DEXA_ITS ---
Exam(s) XR DEXA BONE DENSITY W/WO REINA EXAM: XR DEXA BONE DENSITY W/WO REINA CLINICAL HISTORY: Screening Medicare N95.9 MENOPAUSAL AND PERIMENOPAUSAL DISORDER TECHNIQUE: [employer] C densitometer analysis of left hip, lumbar spine and left forearm. Lat eral survey image of the thoracic and lumbar spine. COMPARISON: 28 September 2004 FINDINGS: Lateral view of the thoracic and lumbar spine shows no evidence of compression fractures. Bone mineral density measurements of the lumbar spine correspond to a total T-score of -1.5, in the osteopenic range. This represents a 2.1 percent decrease compared with 2004 which is not statistical ly significant. Bone mineral density measurements of the left hip correspond to a total T-score of 0.0. This repres ents a 13.4 percent decrease from 2005. The femoral neck T-score is -1.2, in the mildly osteopenic range. Theleft forearm bone mineral density measurements correspond to a T-score of the distal 3rd of 0.5, in the normal range. The forearm was not analyzed in 2004. IMPRESSION: Osteopenia of the lumbar spine and left hip. Normal bone mineral density of the forearm.
== END 2023-12-08 01:37 ==
LOC: DI 01:17
PROVIDERS: PCP Family Medicine; Visit Provider Family Medicine
DX: N95.9 Unspecified menopausal and perimenopausal disorder (principal); Z13.820 Encounter for screening for osteoporosis; M85.89 Other specified disorders of bone density and structure, multiple sites
CPT/HCPCS: 77080

== ENCOUNTER 2024-07-25 02:04 | Outpatient (CLI) | payer MEDICARE, SELFPAY ==
[2024-07-25 10:49] LABS: COMMENT (LAB VIEW ONLY) 234.17 mg/dL; Microalb ug/mg Crea 5.9 ug/mg Cr
[2024-07-25 11:01] LABS: ALT 19 U/L (14-59); AST 17 U/L (15-37); Albumin 3.8 g/dL (3.4-5.0); Alkaline Phosphatase 80 U/L (46-116); Anion Gap 10.1 mmol/L (3-11); BUN 17 mg/dL (7-18); Bilirubin, Total 0.6 mg/dL (0.2-1.0); CO2 24.9 mmol/L (21.0-32.0); CREATININE 1.4 mg/dL (0.55-1.02); Calcium 9.1 mg/dL (8.5-10.1); Chloride 105 mmol/L (98-107); Estimated GFR 41.24 (mL/min/1.73m2); Glucose 195 mg/dL (74-106); Potassium 4.2 mmol/L (3.5-5.1); Sodium 140 mmol/L (136-145); TSH (W/Ref FT4) 3.63 uIU/mL (0.36-3.74); Total Protein 7.1 g/dL (6.4-8.2)
[2024-07-26 11:29] LABS: Hepatitis C Ab w Rflx HCV PCR Negative (Negative)
== END 2024-07-25 02:05 | disposition home or self-care (01) ==
LOC: LBO 02:04
PROVIDERS: PCP Family Medicine; Visit Provider Family Medicine
DX: E11.9 Type 2 diabetes mellitus without complications (principal); Z11.59 Encounter for screening for other viral diseases; I10 Essential (primary) hypertension; E03.9 Hypothyroidism, unspecified
CPT/HCPCS: 36415; 80053; 86803; 82043; 82570; 83036; 84443

== ENCOUNTER 2024-11-26 07:24 | Outpatient (CLI) | payer MEDICARE, SELFPAY ==
[2024-11-26 11:40] LABS: HCT 37.2 % (36.0-46.0); HGB 11.9 g/dL (11.2-15.7); MCH 29.9 pg (27.0-33.0); MCHC 32.0 % (32.0-36.0); MCV 94 fL (80-95); MPV 12.6 fL (8.0-11.0); Platelet Count 187 10^3/uL (130-400); RBC 3.98 10^6/uL (3.93-5.22); RDW 13.4 % (11.7-14.6); RDW-SD 45.8 fL; WBC 8.76 10^3/uL (4.4-10.8)
[2024-11-26 11:58] LABS: Hemoglobin A1C 6.4 % (<5.7)
[2024-11-26 12:35] LABS: ALT 29 U/L (14-59); AST 21 U/L (15-37); Albumin 3.8 g/dL (3.4-5.0); Alkaline Phosphatase 78 U/L (46-116); Anion Gap 8.8 mmol/L (3-11); BUN 26 mg/dL (7-18); Bilirubin, Total 0.7 mg/dL (0.2-1.0); CO2 28.2 mmol/L (21.0-32.0); Calcium 9.0 mg/dL (8.5-10.1); Calculated LDL 71 mg/dL (<100); Chloride 108 mmol/L (98-107); Cholesterol 137 mg/dL (<200); Estimated GFR 37.96 (mL/min/1.73m2); Glucose 164 mg/dL (74-106); HDL Cholesterol 42 mg/dL (>or=50); Potassium 4.2 mmol/L (3.5-5.1); Sodium 145 mmol/L (136-145); TSH (W/Ref FT4) 1.69 uIU/mL (0.36-3.74); Total Protein 7.1 g/dL (6.4-8.2); Triglyceride 122 mg/dL (<150); Vitamin B12 442 pg/mL (193-986); Vitamin D 25 Total 43 ng/mL (30-100)
[2024-11-26 14:14] LABS: COMMENT (LAB VIEW ONLY) 317.64 mg/dL; Microalb ug/mg Crea 2.5 ug/mg Cr
== END 2024-11-26 07:25 | disposition home or self-care (01) ==
LOC: LBO 11-27 07:24
PROVIDERS: PCP Family Medicine; Visit Provider Family Medicine
DX: K76.0 Fatty (change of) liver, not elsewhere classified (principal); M85.80 Other specified disorders of bone density and structure, unspecified site; I10 Essential (primary) hypertension; E03.9 Hypothyroidism, unspecified; E11.9 Type 2 diabetes mellitus without complications
CPT/HCPCS: 36415; 80053; 80061; 82306; 85027; 82043; 82570; 82607; 83036; 84443

== ENCOUNTER 2024-12-10 07:22 | Outpatient (CLI) | payer MEDICARE, SELFPAY ==
--- NOTE | 2024-12-10 06:30 | DI.MAMMO_ITS ---
Exam(s) MAMMO SCREENING EXAM: MAMMO SCREENING CLINICAL HISTORY: screening,z12.39 TECHNIQUE: Mammograms were interpreted according to the usual protocol including computer analysis with CAD system, tomosynthesis and C-view imaging. COMPARISON: 2015 through 2023 FINDINGS: The breasts are composed of scattered fibroglandular densities, Breast Density category B. No suspicious masses or suspicious microcalcifications are seen. Bilateral scattered coarse, benign-appearing calcifications are again noted. No skin thickening or abnormal axillary lymph nodes are seen. There has been no significant change from prior exams. IMPRESSION: BI-RADS Category 1, Negative mammogram Yearly screening mammography is recommended. Breast Density - Category B - There are scattered areas of fibroglandular density. Breast density Category C or D implies that the patient has dense breast tissue. Dense breast tissue can make it harder to find cancer on a mammogram. Dense breast tissue is also associated with an increased risk of breast cancer. This information about the result of the mammogram report was provided to the patient to raise their awareness. Use this report when you speak with the patient about their risks for breast cancer, which includes their family history. At that time, you may recommend additional screening tests (Ultrasound or MRI) as these tests may add significant information. A negative radiographic report should not delay biopsy if a dominant or clinically suspicious mass is present. Up to ten percent of cancers are not identified on mammography. A negative report may reinforce clinical impression. Adenosis and dense breasts may obscure an underlying neoplasm. False positive reports average 6 to 10%. Patient will receive a letter notifying them of these results.
== END 2024-12-10 07:42 ==
LOC: DI 07:22
PROVIDERS: PCP Family Medicine; Visit Provider Family Medicine
DX: Z12.31 Encounter for screening mammogram for malignant neoplasm of breast (principal); R92.323 Mammographic fibroglandular density, bilateral breasts
CPT/HCPCS: 77063; 77067